=== PATIENT | male | born 1950 | race Caucasian/White ===

== ENCOUNTER 2020-09-18 17:04 | Emergency (ER) | payer MEDICARE, BC ==
[2020-09-18 17:15] VITALS: BP 133/75; PULSE 75
--- NOTE | 2020-09-18 17:17 | EDM.PDOC ---
ED HPI GENERAL MEDICAL PROBLEM - General Chief Complaint: Upper Extremity Injury/Pain Stated Complaint: RIGHT SHOULDER DISLOCATION? Time Seen by Provider: 09/18/20 17:17 Source of Information: Reports: Patient - History of Present Illness INITIAL COMMENTS - FREE TEXT/NARRATIVE: Luis, 70-year-old male, presents for pedis to the emergency department with pain to his right shoulder. He states last night he was pulling on a limb in an attempt to break it off from the tree in his yard when, the limb snapped causing him to lose his balance falling to the ground with the limb striking his right shoulder. He had immediate pain with some limitations in his motion. 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 He compensated by rotation of the body predominantly using his left arm. He presents here tonight with significant discomfort to abduction maneuvers. Able to raise forearm to get his hand to the base of the throat neck. Denies any previous concerns to the shoulder. Onset Date: 09/17/20 Onset Time: 20:30 Duration: Hour(s): Location: Reports: Upper Extremity, Right Quality: Reports: Burning, Sharp Severity: Moderate Improves with: Reports: None Worsens with: Reports: Movement Associated Symptoms: Reports: No Other Symptoms Treatments [employer]: Reports: Acetaminophen Right Shoulder Pain Score (Numeric/FACES): 7 - Related Data Allergies Allergy/AdvReac Type Severity Reaction Status Date / Time No Known Drug Allergies Allergy Cannot Verified 09/18/20 17:08 Remember Home Meds: Home Meds atorvaSTATin [Lipitor] 10 mg PO DAILY 09/11/15 [History] metFORMIN HCl [Metformin HCl] 1,000 mg PO BID 09/11/15 [History] Ibrutinib [Imbruvica] 420 mg PO DAILY 09/18/20 [History] Past Medical History Cardiovascular History: Reports: Hypertension Genitourinary History: Reports: Renal Calculus Endocrine/Metabolic History: Reports: Diabetes, Type II Social & Family History - Family History Family Medical History: No Pertinent Family History Review of Systems - Review of Systems Review Of Systems: Comprehensive ROS is negative, except as noted in HPI. Constitutional: Reports: No Symptoms Eyes: Reports: No Symptoms Ears: Reports: No Symptoms Musculoskeletal: Reports: Shoulder Pain, Joint Pain (Right) ED EXAM, GENERAL - Physical Exam Exam: See Below Free Text/Narrative:: Alert, oriented, in no significant distress with no evidence of cyanosis nor pallor. HEENT is negative discharge or deformity. No tenderness is noted to the neck nor the lateral aspects of the neck towards the shoulder or to either side. Left upper extremity is benign as well as the shoulder and back. Right upper extremity he is hesitant to move with no palpable deformity nor mass noted. With passive motion I am able to abduct to at least 45 degrees before he starts feeling discomfort. I then lower this back to his side and I able to go anterior and posterior 15 to 20 degrees. Pulses present throughout, Brachial radialis as well as radial pulse. There is typical range of motion to the wrist, hand, digits, as well as at the elbow. Course - Vital Signs Last Recorded V/S: Last Vital Signs Temp 98.1 F 09/18/20 17:10 Pulse 75 09/18/20 17:10 Resp 18 09/18/20 17:10 BP 133/75 09/18/20 17:10 Pulse Ox 97 09/18/20 17:10 - Orders/Labs/Meds Meds: Medications Discontinued Medications Generic Name Dose Route Start Last Admin Trade Name Freq PRN Reason Stop Dose Admin Ketorolac Tromethamine 60 mg 09/18/20 17:23 09/18/20 17:27 Ketorolac 60 Mg/2 Ml Sdv IM 09/18/20 17:24 60 mg ONETIME ONE Administration - Re-Assessments/Exams Free Text/Narrative Re-Assessment/Exam: 09/18/20 17:24 Does not accept any narcotic-based medication secondary of driving and employment Departure - Departure Time of Disposition: 18:21 Disposition: Home, Self-Care 01 Condition: Good Clinical Impression: Shoulder pain, right Qualifiers: Chronicity: acute Qualified Code(s): M25.511 - Pain in right shoulder Rotator cuff dysfunction Qualifiers: Laterality: right Qualified Code(s): M67.911 - Unspecified disorder of synovium and tendon, right shoulder - Discharge Information *PRESCRIPTION DRUG MONITORING PROGRAM REVIEWED*: Not Applicable *COPY OF PRESCRIPTION DRUG MONITORING REPORT IN PATIENT MEAGHAN: Not Applicable Referrals: Gary Clemons TELETYPIST [Primary Care Provider] - Forms: ED Department Discharge Additional Instructions: Your x-ray does not show any fracture or dislocation. You have moderate to advanced osteoarthritis. You were given an injection of anti-inflammatory called Toradol. This is similar to ibuprofen in the anti-inflammatory pain properties. Do not take any ibuprofen this evening but you may take Tylenol for additional discomfort. You may take ibuprofen 800 mg every 8 hours with food. You may use ice or heat to the shoulder for comfort. You should contact your clinic tomorrow to get reevaluated for the potential of physical therapy and or MRI testing to confirm or rule out rotator cuff injury. This needs to be based on evaluation per your insurance companies guidelines. Contact your clinic in the morning. Any events significant problems arise during the night call or return to the emergency department. Sepsis Event Note (ED) - Evaluation Sepsis Screening Result: No Definite Risk - Focused Exam Vital Signs: Vital Signs Temp Pulse Resp BP Pulse Ox 09/18/20 17:10 98.1 F 75 18 133/75 97 - Problem List & Annotations (1) Shoulder pain, right SNOMED Code(s): 89087057, 40719307 Code(s): M25.511 - PAIN IN RIGHT SHOULDER Status: Acute Priority: High Qualifiers: Chronicity: acute Qualified Code(s): M25.511 - Pain in right shoulder (2) Rotator cuff dysfunction SNOMED Code(s): 855968312 Code(s): M67.919 - UNSP DISORDER OF SYNOVIUM AND TENDON, UNSPECIFIED SHOULDER Status: Acute Priority: High Qualifiers: Laterality: right Qualified Code(s): M67.911 - Unspecified disorder of synovium and tendon, right shoulder - Assessment/Plan Plan: Your x-ray does not show any fracture or dislocation. You have moderate to advanced osteoarthritis. You were given an injection of anti-inflammatory called Toradol. This is similar to ibuprofen in the anti-inflammatory pain properties. Do not take any ibuprofen this evening but you may take Tylenol for additional discomfort. You may take ibuprofen 800 mg every 8 hours with food. You may use ice or heat to the shoulder for comfort. You should contact your clinic tomorrow to get reevaluated for the potential of physical therapy and or MRI testing to confirm or rule out rotator cuff injury. This needs to be based on evaluation per your insurance companies guidelines. Contact your clinic in the morning. Any events significant problems arise during the night call or return to the emergency department.
[2020-09-18] MEDS: Ketorolac 60 MG/2 ML SDV IM ONE (17:27)
--- NOTE | 2020-09-18 18:10 | CR ---
[id number] RAD/RAD Shoulder Right 2V Min EXAM: RAD Shoulder Right 2V Min INDICATION: SHOULDER PAIN. COMPARISON: None. DISCUSSION: Moderate glenohumeral and moderate to advanced acromioclavicular osteoarthritis. No acute fracture or dislocation is identified. IMPRESSION: 1. Moderate to advanced osteoarthritis. Kevyn Vanegas MD 09/18/20 [id number] Thank you for allowing us to participate in the care of your patient.
== END 2020-09-18 18:42 | disposition home or self-care (01) ==
LOC: KA.ED 17:04
DX: S46.011A Strain of muscle(s) and tendon(s) of the rotator cuff of right shoulder, initial encounter (principal); I10 Essential (primary) hypertension; E11.9 Type 2 diabetes mellitus without complications; Z79.84 Long term (current) use of oral hypoglycemic drugs; Z79.899 Other long term (current) drug therapy; W14.XXXA Fall from tree, initial encounter
CPT/HCPCS: 73030-RT; 96372; 99283; 99283-25; J1885

== ENCOUNTER 2020-11-11 10:57 | Emergency (ER) | payer MEDICARE, BC ==
[2020-11-11 11:12] VITALS: BP 138/68; PULSE 53
--- NOTE | 2020-11-11 11:32 | EDM.PDOC ---
ED HPI GENERAL MEDICAL PROBLEM - General Chief Complaint: General Stated Complaint: R FLANK PX/DRY HEAVES Time Seen by Provider: 11/11/20 11:32 Source of Information: Reports: Patient - History of Present Illness INITIAL COMMENTS - FREE TEXT/NARRATIVE: Giovanni, 70-year-old male, presents by private vehicle to the emergency department with nausea vomiting and right flank pain. 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 This is similar to previous renal lithiasis. He attempted to increase his hydration status which led to nausea and vomiting. Unable to keep anything down he presented to the emergency department. He states his pain is significantly improving now being 4 5 from a previous 9 at onset and by the time my examination has concluded there is minimal discomfort and he has the urge to void. Nausea has completely resolved. Is been sometime since he had a stone but acknowledges that he is likely on the dry side as he is not a prudent water drinker. Onset: Today, Sudden Duration: Hour(s):, Improving Location: Reports: Back, Radiates to (flank) Quality: Reports: Same as Previous Episode Severity: Severe Improves with: Reports: Other (time) Worsens with: Reports: None Context: Reports: Activity Associated Symptoms: Reports: No Other Symptoms Right Flank Pain Score (Numeric/FACES): 4 - Related Data Allergies Allergy/AdvReac Type Severity Reaction Status Date / Time No Known Drug Allergies Allergy Cannot Verified 11/11/20 11:12 Remember Home Meds: Home Meds atorvaSTATin [Lipitor] 10 mg PO DAILY 09/11/15 [History] metFORMIN HCl [Metformin HCl] 1,000 mg PO BID 09/11/15 [History] Ibrutinib [Imbruvica] 420 mg PO DAILY 09/18/20 [History] Past Medical History Cardiovascular History: Reports: Hypertension Genitourinary History: Reports: Renal Calculus Endocrine/Metabolic History: Reports: Diabetes, Type II Social & Family History - Family History Family Medical History: No Pertinent Family History - Tobacco Use Tobacco Use Status *Q: Never Tobacco User - Caffeine Use Caffeine Use: Reports: Coffee, Tea - Alcohol Use Alcohol Use Frequency: Rarely - Recreational Drug Use Recreational Drug Use: No ED ROS GENERAL - Review of Systems Review Of Systems: Comprehensive ROS is negative, except as noted in HPI. ED EXAM, GENERAL - Physical Exam Exam: See Below Free Text/Narrative:: Alert, oriented in minimal distress at this time. HEENT is negative discharge or deformity with pink moist mucous membranes. Thorax is clear no wheezes no crackles. Cardiac is regular There is no flank pain to percussion, no abdominal discomfort nor radiation to the groin. He is able to move about with minimal discomfort stating his pain may be a 1 at this time. As he is able to void I would like to obtain a voided urine to urinal which we will strain for evaluation. Course - Vital Signs Last Recorded V/S: Last Vital Signs Temp 96.7 F L 11/11/20 11:06 Pulse 53 L 11/11/20 11:06 Resp 18 11/11/20 11:06 BP 138/68 11/11/20 11:06 Pulse Ox 98 11/11/20 11:06 - Orders/Labs/Meds Orders: Active Orders 24 hr Category Date Time Status Peripheral IV Care [RC] . DIRECTED Care 11/11/20 11:48 Active Sodium Chloride 0.9% [Saline Flush] Med 11/11/20 11:48 Active 10 ml FLUSH Q8HR PRN Peripheral IV Insertion Adult [OM.PC] Routine Oth 11/11/20 11:48 Ordered Medication Orders Sodium Chloride (Sodium Chloride 0.9% 10 Ml Syringe) 10 ml FLUSH Q8HR PRN PRN Reason: keep vein open Last Admin: 11/11/20 12:05 Dose: 10 ml Documented by: KENDRICK Labs: Laboratory Tests 11/11/20 Range/Units 11:45 Specimen Type Urinvoid Urine Color Yellow (YELLOW) Urine Appearance Cloudy H (CLEAR) Urine pH 5.0 (5.0-9.0) Ur Specific [place] 1.025 (1.005-1.030) Urine Protein 30 H (NEGATIVE) mg/dL Urine Glucose (UA) Negative (NEGATIVE) mg/dL Urine Ketones 15 H (NEGATIVE) mg/dL Urine Occult Blood Large H (NEGATIVE) Urine Nitrite Negative (NEGATIVE) Urine Bilirubin Negative (NEGATIVE) Urine Urobilinogen 0.2 (0.2-1.0) E.U./dL Ur Leukocyte Esterase Negative (NEGATIVE) Urine RBC Semi-packed (0-5) /HPF Urine WBC 0-5 (0-5) /HPF Ur Epithelial Cells Few /LPF Urine Bacteria Few (NONE TO FEW) /HPF Meds: Medications Generic Name Dose Route Start Last Admin Trade Name Freq PRN Reason Stop Dose Admin Sodium Chloride 10 ml 11/11/20 11:48 11/11/20 12:05 Sodium Chloride 0.9% 10 Ml Syringe FLUSH 10 ml Q8HR PRN Administration keep vein open Discontinued Medications Generic Name Dose Route Start Last Admin Trade Name Freq PRN Reason Stop Dose Admin Sodium Chloride 1,000 mls @ 999 mls/hr 11/11/20 11:48 11/11/20 12:00 Normal Saline IV 11/11/20 12:48 999 mls/hr .BOLUS ONE Administration - Re-Assessments/Exams Free Text/Narrative Re-Assessment/Exam: 11/11/20 12:32 Able to void with no difficulty a very dark concentrated appearing urine. I am able to speak passes through the strainer and send sample for laboratory analysis. Urine appears very thick and sticky. A small stone is noted in the strainer with the urinal being rinsed and poured through the strainer with only 1 small product being obtained. He is now pain-free at this time and we discussed hydration giving him a liter of fluid IV and analyzing the urine and avoiding CT at this time. He is full agreements with this and is adequately tolerating IV hydration as well as sipping some on water with no nausea or vomiting. Free Text/Narrative Re-Assessment/Exam: 11/11/20 13:11 Has remained pain free throughout his stay and is discharge with no concerns. Departure - Departure Time of Disposition: 13:06 Disposition: Home, Self-Care 01 Condition: Good Clinical Impression: Renal lithiasis, Hematuria with proteinuria - Discharge Information *PRESCRIPTION DRUG MONITORING PROGRAM REVIEWED*: Not Applicable *COPY OF PRESCRIPTION DRUG MONITORING REPORT IN PATIENT MEAGHAN: Not Applicable Referrals: Sarmad Whitfield MD [Primary Care Provider] - Forms: ED Department Discharge Additional Instructions: You need to be drinking 8 to 10 glasses of water daily. Your urine should only be dark upon awakening in the morning, as you are able to drink enough water your urine should be almost as clear as the water you are drinking. You fortunately passed a small stone this morning with minimal discomfort and has been pain-free since then. You need to maintain good fluid hydration to help reduce the formation of any stones and also ease their passing into smaller state versus developing him to a larger crystal. Continue your medications as directed. Increase fluid intake. Follow-up with your clinic as needed and scheduled as we discussed the findings of your shoulder MRI requiring orthopedic consult. Sepsis Event Note (ED) - Evaluation Sepsis Screening Result: No Definite Risk - Focused Exam Vital Signs: Vital Signs Temp Pulse Resp BP Pulse Ox 11/11/20 11:06 96.7 F L 53 L 18 138/68 98 - Problem List & Annotations (1) Renal lithiasis SNOMED Code(s): 09589240 Code(s): N20.0 - CALCULUS OF KIDNEY Status: Acute Priority: High Curr ent Visit: Yes (2) Hematuria with proteinuria SNOMED Code(s): 33613349 Code(s): R31.9 - HEMATURIA, UNSPECIFIED; R80.9 - PROTEINURIA, UNSPECIFIED Status: Acute Priority: High Current Visit: Yes - Problem List Review Problem List Initiated/Reviewed/Updated: Yes - My Orders Last 24 Hours: My Active Orders 11/11/20 11:48 Peripheral IV Care [RC] . DIRECTED Sodium Chloride 0.9% [Saline Flush] 10 ml FLUSH Q8HR PRN Peripheral IV Insertion Adult [OM.PC] Routine - Assessment/Plan Last 24 Hours: My Active Orders 11/11/20 11:48 Peripheral IV Care [RC] . DIRECTED Sodium Chloride 0.9% [Saline Flush] 10 ml FLUSH Q8HR PRN Peripheral IV Insertion Adult [OM.PC] Routine Plan: You need to be drinking 8 to 10 glasses of water daily. Your urine should only be dark upon awakening in the morning, as you are able to drink enough water your urine should be almost as clear as the water you are drinking. You fortunately passed a small stone this morning with minimal discomfort and has been pain-free since then. You need to maintain good fluid hydration to help reduce the formation of any stones and also ease their passing into smaller state versus developing him to a larger crystal. Continue your medications as directed. Increase fluid intake. Follow-up with your clinic as needed and scheduled as we discussed the findings of your shoulder MRI requiring orthopedic consult.
[2020-11-11] MEDS: Sodium Chloride 0.9% 1,000 ML IV ONE (12:00)
[2020-11-11] MEDS: Sodium Chloride 0.9% 10 ML Syringe FLUSH PRN (12:05)
== END 2020-11-11 13:10 | disposition home or self-care (01) ==
LOC: KA.ED 10:57
DX: N20.0 Calculus of kidney (principal); R31.9 Hematuria, unspecified; R80.9 Proteinuria, unspecified; I10 Essential (primary) hypertension; E11.9 Type 2 diabetes mellitus without complications; Z79.84 Long term (current) use of oral hypoglycemic drugs; Z79.899 Other long term (current) drug therapy
CPT/HCPCS: 81001; 99284; J7030

== ENCOUNTER 2021-11-23 19:53 | Emergency (ER) | payer BC, MEDICARE ==
[2021-11-23 20:21] LABS: ANION GAP 16.8 mmol/L (5-15); CHLORIDE,CL 101 mmol/L (98-107); SODIUM,NA 138 mmol/L (136-145)
[2021-11-23 20:25] LABS: ESTIMATED GFR 68 mL/min (>=60)
[2021-11-23] MEDS: Sodium Chloride 0.9% 10 ML Syringe FLUSH PRN (20:25)
[2021-11-23] MEDS: Sodium Chloride 0.9% 1,000 ML IV ONE ×2 (20:28→22:53)
[2021-11-23] MEDS: Ketorolac 30 MG/ML SDV IVPUSH ONE (20:30)
[2021-11-23] MEDS: Ketorolac 30 MG/ML SDV IM ONE (20:34)
[2021-11-23] MEDS: Tamsulosin 0.4 MG Cap.ER PO ONE (20:41)
[2021-11-23 23:04] VITALS: BP 132/87; PULSE 69
[2021-11-23] MEDS: Sodium Chloride 0.9% 1,000 ML ONE (23:13)
== END 2021-11-24 00:10 | disposition home or self-care (01) ==
LOC: KA.ED 19:53
DX: N13.2 Hydronephrosis with renal and ureteral calculous obstruction (principal); I10 Essential (primary) hypertension; E11.9 Type 2 diabetes mellitus without complications; Z79.84 Long term (current) use of oral hypoglycemic drugs; Z79.899 Other long term (current) drug therapy
CPT/HCPCS: 36415; 74176; 80053; 81001; 85025; 96361; 96372; 96374; 99284; 99284-25; A9270-GY; J1885; J3490; J7030